=== PATIENT | male | born 1965 | race African-American/Black ===

== ENCOUNTER 2017-06-09 07:35 | Emergency (ER) | payer SELFPAY ==
[~2017-06-09] VITALS: Ht 175.3 cm; Wt 76.0 kg
[2017-06-09] MEDS ORDERED: ONDANSETRON HCL 4MG/2ML VIAL ONE (08:19)
[2017-06-09 08:29] LABS: BASOPHILS % 1.2 % (0.0-2.0); EOSINOPHILS % 3.4 % (0.0-5.0); HEMOGLOBIN. 13.7 g/dL (14.0-18.0); LYMPHOCYTES % 37.4 % (20.0-50.0); MEAN CORPUSCULAR HEMOGLOBIN 27.8 pg (28.0-32.0); MEAN PLATELET VOLUME 8.7 fl (7.4-10.4); MONOCYTES % 8.4 % (2.0-8.0); NEUTROPHILS % 49.6 % (40.0-76.0); PLATELET 232 x1000/uL (130-400); RED BLOOD CELL COUNT 4.94 mill/uL (4.7-6.1); RED CELL DISTRIBUTION WIDTH 14.3 % (11.6-14.6)
[2017-06-09 08:32] LABS: INR 2.2
[2017-06-09 08:40] LABS: CARBON DIOXIDE 24 mEq/L (21-32); CHLORIDE 105 mEq/L (98-107)
[2017-06-09 08:42] LABS: TROPONIN I 0.05 ng/mL (0.00-0.04)
[2017-06-09] MEDS ORDERED: ONDANSETRON HCL 4MG/2ML VIAL IV ONE (08:45)
[2017-06-09 09:06] VITALS: BP 109/77
== END 2017-06-09 09:21 | disposition home or self-care (01) ==
LOC: ER 08:31
DX: I47.1 Supraventricular tachycardia (principal); R11.2 Nausea with vomiting, unspecified; I10 Essential (primary) hypertension; I25.2 Old myocardial infarction
CPT/HCPCS: 36415; 71010; 80053; 83880; 84484; 85025; 85610; 93005; 96374; 99285; J2405; Z7610